=== PATIENT | female | born 1990 | race Caucasian/White ===

== ENCOUNTER 2018-03-26 13:09 | Emergency (ER) | payer OTHER ==
[2018-03-26 13:37] VITALS: BP 106/70; PULSE 80; TEMP 97.9; BMI 17.4
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
[2018-03-26] MEDS ORDERED: DIPHTH,PERTUSS(ACELL),TET 0.5 ML DISP.SYRIN IM ONE ×2 (14:24→14:28)
== END 2018-03-26 14:33 | disposition home or self-care (01) ==
LOC: JERFT 13:09
PROC: 3E0234Z Introduction of Serum, Toxoid and Vaccine into Muscle, Percutaneous Approach (ICD-10-PCS; principal; 2018-03-26)
DX: S60.512A Abrasion of left hand, initial encounter (principal); W01.110A Fall on same level from slipping, tripping and stumbling with subsequent striking against sharp glass, initial encounter; Y93.89 Activity, other specified; Y92.89 Other specified places as the place of occurrence of the external cause; Y99.8 Other external cause status
CPT/HCPCS: 73130-TC-LT-FY; 90471; 90715; 99281-25

== ENCOUNTER 2019-12-26 17:13 | Emergency (ER) | payer OTHER ==
[2019-12-26 17:32] VITALS: BP 101/62; PULSE 78; BMI 16.2
[2019-12-26 17:36] VITALS: TEMP 98.3
[2019-12-26] MEDS ORDERED: ACETAMINOPHEN 500 MG TABLET (FP) ONE (17:51)
[2019-12-26] MEDS ORDERED: ACETAMINOPHEN 325 MG TABLET (FP) PO ONE (17:54)
--- NOTE | 2019-12-26 17:58 | PDOC ---
History of Present Illness - General Chief Complaint: Sore Throat Stated Complaint: SORE THROAT/BODY ACHES/SOB Time Seen by Provider: 12/26/19 17:29 History Source: Patient Exam Limitations: No Limitations Past History - Travel History Traveled outside of the country in the last 30 days: No Close contact w/someone who was outside of country & ill: No - Medical History Allergies/Adverse Reactions: Allergies Allergy/AdvReac Type Severity Reaction Status Date / Time No Known Allergies Allergy Verified 03/26/18 13:25 Home Medications: Ambulatory Orders NK [No Known Home Medication] 03/26/18 COPD: No - Reproductive History Is Patient Now?: No - Psycho-Social/Smoking History Smoking History: Never smoked Have you smoked in the past 12 months: No - Substance Abuse Hx (Audit-C & DAST Scrn) How often the patient has a drink containing alcohol: Never Score: In Men: 4 or > Positive; In Women: 3 or > Positive: 0 Screen Result (Pos requires Nsg. Audit-10AR): Negative In the last yr the pt used illegal drug/Rx for NonMed reason: No Score: Yes response is considered Positive: 0 Screen Result (Positive result requires Nsg. DAST-10): Negative Review of Systems - Review of Systems Able to Perform ROS?: Yes Comments:: 12/26/19 22:37 CONSTITUTIONAL: Present: General weakness. Absent: fever, chills, diaphoresis, generalized weakness, malaise, loss of appetite HEENT: Present: Throat pain Absent: rhinorrhea, nasal congestion, throat pain, throat swelling, difficulty swallowing, mouth swelling, ear pain, eye pain, visual Changes CARDIOVASCULAR: Absent: chest pain, loss of consciousness, palpitations, irregular heart rate, peripheral edema RESPIRATORY: Absent: cough, shortness of breath, dyspnea with exertion, orthopnea, wheezing, stridor, hemoptysis GASTROINTESTINAL: Absent: abdominal pain, abdominal distension, nausea, vomiting, diarrhea, constipation, melena, hematochezia GENITOURINARY: Absent: dysuria, frequency, urgency, hesitancy, hematuria, flank pain, genital pain MUSCULOSKELETAL: Absent: myalgia, arthralgia, joint swelling SKIN: Absent: rash, itching, pallor HEMATOLOGIC/IMMUNOLOGIC: Absent: easy bleeding, easy bruising, lymphadenopathy, frequent infections ENDOCRINE: Absent: unexplained weight gain, unexplained weight loss, heat intolerance, cold intolerance NEUROLOGIC: Absent: headache, focal weakness or paresthesias, dizziness, unsteady gait, seizure, mental status changes, bladder or bowel incontinence PSYCHIATRIC: Absent: anxiety, depression, suicidal or homicidal ideation, hallucinations. Is the patient limited Turkish proficient: No *Physical Exam - Vital Signs Last Vital Signs Temp Pulse Resp BP Pulse Ox 98.3 F 78 16 101/62 100 12/26/19 17:25 12/26/19 17:25 12/26/19 17:25 12/26/19 17:25 12/26/19 17:25 - Physical Exam 12/26/19 22:37 =GENERAL: Well developed, well nourished. Awake and alert. No acute distress. HEENT: Normocephalic, atraumatic. PERRLA, EOMI. No conjunctival pallor. Sclera are non- icteric. Moist mucous membranes. Oropharynx is clear. NECK: Supple. Full ROM. No lymphadenopathy. CARDIOVASCULAR: Regular rate and rhythm. No murmurs, rubs, or gallops. Distal pulses are 2+ and symmetric. PULMONARY: No evidence of respiratory distress. Lungs clear to auscultation bilaterally. No wheezing, rales or rhonchi. ABDOMINAL: Soft. Non-tender. Non-distended. No rebound or guarding. MUSCULOSKELETAL Normal range of motion at all joints. No bony deformities or tenderness. No CVA tenderness. EXTREMITIES: No cyanosis. No clubbing. No edema. No calf tenderness. SKIN: Warm and dry. Normal capillary refill. No rashes. No jaundice. NEUROLOGICAL: Alert, awake, appropriate. Cranial nerves 2-12 intact. No deficits to light touch and temperature in face, upper extremities and lower extremities. No motor deficits in the in face, upper extremities and lower extremities. Normoreflexic in the upper and lower extremities. Normal speech. Toes are down-going bilaterally. Gait is normal without ataxia. PSYCHIATRIC: Cooperative. Good eye contact. Appropriate mood and affect. Medical Decision Making - Medical Decision Making 12/26/19 22:38 The patient is a 29-year-old female past medical history of anxiety, presents to the ER today for sore throat and generalized body aches for the past 4 days. 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 She is concerned she might have COVID at this time. Denies fevers. She states she has a dry cough as well. Denies chest pain, difficulty breathing, shortness of breath, nausea, vomiting, diarrhea and loss of taste or sense of smell. A/P: URI On exam there is nonerythematous without exudate or edema. Lungs are clear to auscultation without without wheezes rales or rhonchi. Vital signs are stable Strep is negative. COVID test sent. Advised patient to isolate however I think patient most likely has a viral URI that is not COVID. Discharge home with supportive therapy I discussed the physical exam findings, ancillary test results and final diagnoses with the patient. I answered all of the patient's questions. The patient was satisfied with the care received and felt comfortable with the discharge plan and treatment plan. The Patient agrees to follow up with the primary care physician/specialist within 24-72 hours. Return precautions were given. Discharge - Discharge Information Problems reviewed: Yes Clinical Impression/Diagnosis: URI (upper respiratory infection) Qualifiers: URI type: unspecified URI Qualified Code(s): J06.9 - Acute upper respiratory infection, unspecified Condition: Stable Disposition: HOME - Admission No - Follow up/Referral Referrals: Iraj Bruger MD [Staff Physician] - - Patient Discharge Instructions Patient Printed Discharge Instructions: DI for COVID-19 (Suspected or Confirmed ), [facility] COVID-19 Isolation Protocol Additional Instructions: You were seen for your body aches, sore throat today. You were tested for both COVID and strep throat. I will call you with your strep results when they result. You may take Tylenol or Motrin as needed for pain. Please follow the dosing instructions on the bottle. You may use cough drops, warm tea with honey to help with your sore throat. Please follow-up with your primary care doctor this week. Return to the ER for increased difficulty breathing, chest pain or if you have any changes in your symptoms. - Post Discharge Activity Work/Back to School Note: Back to Work
[2019-12-26 18:24] LABS: THROAT:GRP A STREP ANTIGEN Negative (Negative)
== END 2019-12-26 18:50 | disposition home or self-care (01) ==
LOC: JERFT 17:13
DX: J06.9 Acute upper respiratory infection, unspecified (principal)
CPT/HCPCS: 87070; 87880; 99284-25; U0003

== ENCOUNTER 2021-10-03 22:37 | Emergency (ER) | payer SELFPAY ==
[2021-10-03 22:48] VITALS: BP 120/84; PULSE 90; TEMP 98; BMI 17.4
== END 2021-10-03 23:36 | disposition home or self-care (01) ==
LOC: FER 22:37
DX: U07.1 COVID-19 (principal)
CPT/HCPCS: 99281-25